=== PATIENT | male | born 1965 | race Caucasian/White ===

== ENCOUNTER 2017-06-20 15:39 | Emergency (ER) | payer BC, OTHER ==
[2017-06-20 16:07] VITALS: BP 119/75
--- NOTE | 2017-06-20 16:33 | UC ---
Throat Pain/Nasal Kan HPI - HPI Summary HPI Summary: 4 week history of progressive sinus pressure on the right, with posterior drainage, no fever. Similar to past sinus infections. - History of Current Complaint Chief Complaint: UCGeneralIllness Stated Complaint: SINUSES Time Seen by Provider: 06/20/17 16:23 Hx Obtained From: Patient Onset/Duration: Gradual Onset, Lasting Weeks - 4 Severity: Moderate Cough: Nonproductive Associated Signs & Symptoms: Positive: Sinus Discomfort - Epiglottits Risk Factors Epiglottis Risk Factors: Negative - Allergies/Home Medications Allergies/Adverse Reactions: Allergies Allergy/AdvReac Type Severity Reaction Status Date / Time No Known Allergies Allergy Verified 06/20/17 16:07 Home Medications: Home Medications Acetaminophen W/ Dm [Daytime Cold Medicine] 1 liq PO DAILY PRN 06/20/17 [ History Confirmed 06/20/17] [id number]-Fyixo [Nyquil Severe Cold/Flu 5-6.25-10-325 mg/15Ml] 1 liq PO ONCE PRN 06/20/17 [History Confirmed 06/20/17] PMH/Surg Hx/FS Hx/Imm Hx Previously Healthy: Yes - Surgical History Surgical History: None - Family History Known Family History: Positive: Other - father CA colon - Social History Occupation: Employed Full-time - [employer] Lives: With Family Alcohol Use: Rare Substance Use Type: None Smoking Status (MU): Never Smoked Tobacco Review of Systems Constitutional: Fatigue Skin: Negative Eyes: Negative ENT: Sore Throat, Ear Ache, Sinus Congestion Respiratory: Cough - morning only, no dyspnea. Cardiovascular: Negative Gastrointestinal: Negative Genitourinary: Negative Motor: Negative Neurovascular: Negative Musculoskeletal: Negative Neurological: Negative Psychological: Negative Is Patient Immunocompromised?: No All Other Systems Reviewed And Are Negative: Yes Physical Exam Triage Information Reviewed: Yes Appearance: Well-Appearing, Pain Distress - mild, Obese Vital Signs: Initial Vital Signs Temp 98.6 F 06/20/17 16:00 Pulse 69 06/20/17 16:00 Resp 20 06/20/17 16:00 BP 119/75 06/20/17 16:00 Pulse Ox 98 06/20/17 16:00 Eyes: Positive: Conjunctiva Clear ENT: Positive: TM dull - bilaterally, TM red - injected on the left side. Dental Exam: Normal Neck: Positive: Supple, Nontender, No Lymphadenopathy Respiratory: Positive: Lungs clear, Normal breath sounds Cardiovascular: Positive: RRR, No Murmur Neurological: Positive: Alert, Muscle Tone Normal Psychological Exam: Normal Skin Exam: Normal Throat Pain/Nasal Course/Dx - Course Course Of Treatment: augmentin for sinusitis, continue steroid nasal spray. - Differential Dx/Diagnosis Differential Diagnosis/HQI/PQRI: Otitis Media, URI Provider Diagnoses: acute right maxillary and frontal sinusitis. Discharge - Discharge Plan Condition: Stable Disposition: HOME Prescriptions: Amoxicillin/Clavulanate TAB* [Augmentin TAB 875*] 875 mg PO BID #28 tab Patient Education Materials: Sinusitis (ED) Additional Instructions: As discussed, take the antibiotic for 5 days after the sinus pressure resolves, for up to 14 days, but stopping earlier if you have a quick improvement. Ensure use of probiotics to prevent diarrhea, and the medication can be taken with food.
== END 2017-06-20 16:53 | disposition home or self-care (01) ==
LOC: UCCORT 15:39
DX: J01.00 Acute maxillary sinusitis, unspecified (principal); J01.10 Acute frontal sinusitis, unspecified
CPT/HCPCS: 99202; G0463